=== PATIENT | male | born 1975 | race Hispanic/Latino ===

== ENCOUNTER 2018-09-29 17:09 | Outpatient (CLI) | payer BC ==
--- NOTE | 2018-09-30 07:17 | CT ---
CT OF THE ABDOMEN AND PELVIS WITHOUT CONTRAST 09/29/[address] of the abdomen and pelvis was done without oral or IV contrast. Axial slices were acquired, then coronal reconstructions were done. The lung bases are clear. the liver, spleen, pancreas, adren al glands and abdominal aorta appeared normal within the limitations of a noncontrast study. What keli ears to be the gallbladder is decompressed so cannot be commented on much at this point. I see no sto christiano here. There is a large rounded mass attached to the mid to upper portion of the right kidney that measures 4.6 cm in size[address] Its CT numbers are relatively low at 15. It would be more comforting to see them a bi t lower to ensure that this is purely water density. I feel the odds are highest that this is a simpl e cyst. It does appear to have a small daughter cyst at its edge. It would be best to follow with an ultrasound to prove that it is purely cystic. No renal stones were seen. There is no hydronephrosis. No cause for left flank pain was found. The bowel shows on distention or inflammatory change around it. The sigmoid colon wall is a little th icker than the remainder of the colon but not so much so that current colitis would be diagnosed. CT of the pelvis shows no pelvic masses, fluid collections, or inflammatory changes. IMPRESSION: 1. No cause for left flank pain seen at the moment. 2. 4.6 cm presumed cyst of the right kidney. Elective ultrasound needed to confirm it. 3. Parts of the sigmoid colon may have slightly thickened [place] but it would not surprise me if this is longstanding and not acute. Code T POS: HOME
== END 2018-09-29 17:10 | disposition home or self-care (01) ==
LOC: BURCT 17:09
PROVIDERS: ATTEND Family Medicine
DX: R10.9 Unspecified abdominal pain (principal); N28.1 Cyst of kidney, acquired
CPT/HCPCS: 74176

== ENCOUNTER 2018-10-12 09:34 | Outpatient (CLI) | payer BC ==
--- NOTE | 2018-10-12 15:37 | ULT ---
BILATERAL RENAL ULTRASOUND: 10/12/18 Ultrasonography of the urinary tract was done to check on a probable cyst seen by CT involving the ri ght kidney. The right kidney measures 11.0 x 4.9 x 5.0 cm. Indeed, there is a cyst seen in this kidney that measu res 4.0 x 4.3 x 4.1 cm. Internally, it appears purely cystic with no solid elements or septations. The left kidney is 11.1 x 5.7 x 4.7 cm. No mass or cyst was seen in it. Both kidneys showed no sign of obstruction. The cortex is normal in appearance in each. The urinary bladder shows no internal defects or worrisome wall thickening. The prostate measured nor mal in size for age. IMPRESSION: 4.3 cm cyst of the right kidney. It appears purely cystic by ultrasound criteria. POS: HOME
== END 2018-10-12 09:35 | disposition home or self-care (01) ==
LOC: BURULT 09:34
PROVIDERS: ATTEND Family Medicine
DX: N28.1 Cyst of kidney, acquired (principal)
CPT/HCPCS: 76770

== ENCOUNTER 2020-08-16 11:56 | Emergency (ER) | payer BC, SELFPAY ==
[2020-08-16] MEDS ORDERED: Nitroglycerin 0.4 MG TAB 1 EACH ONE ×2 (12:05→12:13)
[2020-08-16] MEDS ORDERED: Metoprolol Tartrate 5 MG/5 ML VIAL ONE (12:05)
[2020-08-16] MEDS ORDERED: Aspirin Chewable 81 MG TAB ONE (12:05)
[2020-08-16] MEDS ORDERED: Heparin 25,000 units/D5W 500 ML ONE (12:13)
[2020-08-16] MEDS ORDERED: Heparin 5,000 UNITS/ML VIAL ONE (12:13)
[2020-08-16 12:14] LABS: #Basophils 0.3 thou/uL (0.0-0.2); #Eosinphils 0.3 thou/uL (0.0-0.7); #Lymphocytes 4.7 thou/uL (1.20-3.40); #Monocytes 1.1 thou/uL (0.11-0.59); #Neutrophils 10.4 thou/uL (1.40-6.50); %Basophils 1.9 % (0.0-1.0); %Eosinophils 1.8 % (0.0-10.0); %Lymphocytes 28.2 % (21.0-51.0); %Monocytes 6.5 % (0.0-10.0); %Neutrophils 61.7 % (42.0-75.0); Hemoglobin 15.7 g/dL (14.0-18.0); Mean Corpuscular HGB CONC 33.7 g/dL (32.0-36.0); Platelet Count 346 thou/uL (130-400); RBC Distribution Width 12.6 % (11.5-14.5); Red Blood Cell (RBC) Count 5.07 mill/uL (4.70-6.10); White Blood Cell (WBC) Count 16.8 thou/uL (4.8-10.8)
[2020-08-16 12:19] LABS: Prothrombin Time 13.5 sec (12.0-14.7)
[2020-08-16] MEDS ORDERED: Morphine 4 MG/ML VIAL ONE (12:21)
[2020-08-16 12:28] LABS: ALT (SGPT) 33 U/L (8-55); AST (SGOT) 21 U/L (5-34); Albumin 4.4 g/dL (3.5-5.0); Alkaline Phosphatase 110 U/L (40-110); Anion Gap 15 mmol/L (10-20); BUN (Urea Nitrogen) 12 mg/dL (8.9-20.6); Bilirubin, Total 0.5 mg/dL (0.2-1.2); Calc. Creatinine Clearance 0 mL/min (70-130); Calcium 8.9 mg/dL (7.8-10.44); Carbon Dioxide 21 mmol/L (22-29); Chloride 107 mmol/L (98-107); Globulin 2.5 g/dL (2.4-3.5); Glucose 129 mg/dL (70-105); Potassium 3.1 mmol/L (3.5-5.1); Protein, Total 6.9 g/dL (6.0-8.3); Sodium 140 mmol/L (136-145)
[2020-08-16] MEDS ORDERED: Potassium Chloride 20 MEQ TAB ONE (12:34)
--- NOTE | 2020-08-16 13:57 | RAD ---
PORTABLE CHEST: Date: 08/16/2020 An AP portable film at 1218 hours is compared with the 03/22/2013 study. The heart is normal in size and the lungs are clear. No infiltrate or effusion seen. There is no vasc ular congestion or edema. The mediastinum appears normal. IMPRESSION: No acute findings. POS: HOME
== END 2020-08-16 12:36 | disposition short-term general hospital (02) ==
LOC: BURERS 11:56
DX: I21.3 ST elevation (STEMI) myocardial infarction of unspecified site (principal); E87.6 Hypokalemia; I10 Essential (primary) hypertension; F17.210 Nicotine dependence, cigarettes, uncomplicated
CPT/HCPCS: 71045; 80053; 84484; 85025; 85610; 85730; 93005; 94760; 96374; 96375; 96376; J1644; J2270

== ENCOUNTER 2020-09-17 07:21 | Outpatient (CLI) | payer OTHER ==
[2020-09-17 08:51] LABS: ALT (SGPT) 50 U/L (8-55); AST (SGOT) 27 U/L (5-34); Albumin 4.3 g/dL (3.5-5.0); Alkaline Phosphatase 121 U/L (40-110); Anion Gap 15 mmol/L (10-20); BUN (Urea Nitrogen) 12 mg/dL (8.9-20.6); Bilirubin, Total 0.5 mg/dL (0.2-1.2); Calc. Creatinine Clearance 0 mL/min (70-130); Calcium 9.4 mg/dL (7.8-10.44); Carbon Dioxide 24 mmol/L (22-29); Chloride 107 mmol/L (98-107); Cholesterol 139 mg/dl (< 200 Desired); Globulin 2.2 g/dL (2.4-3.5); Glucose 100 mg/dL (70-105); HDL Cholesterol 46 mg/dL (>60 Neg Risk); LDL Cholesterol, Calculated 67 mg/dL; Potassium 4.1 mmol/L (3.5-5.1); Protein, Total 6.5 g/dL (6.0-8.3); Sodium 142 mmol/L (136-145); Triglycerides 128 mg/dL (Less than 150)
== END 2020-09-17 07:22 | disposition home or self-care (01) ==
LOC: BURLAB 07:21
DX: I25.10 Atherosclerotic heart disease of native coronary artery without angina pectoris (principal); E78.5 Hyperlipidemia, unspecified
CPT/HCPCS: 36415; 80053; 80061

== ENCOUNTER 2020-11-29 08:00 | Emergency (ER) | payer SELFPAY ==
[2020-11-29] MEDS ORDERED: Ibuprofen 800 MG TAB ONE (08:37)
[2020-11-29] MEDS ORDERED: HYDROcodone/Acetaminophen 5/325 mg Tablet ONE (08:37)
== END 2020-11-29 09:18 | disposition home or self-care (01) ==
LOC: BURERS 08:00
DX: M23.91 Unspecified internal derangement of right knee (principal); I10 Essential (primary) hypertension; E78.00 Pure hypercholesterolemia, unspecified; F17.210 Nicotine dependence, cigarettes, uncomplicated

== ENCOUNTER 2021-02-11 07:40 | Outpatient (CLI) | payer OTHER ==
[2021-02-11 09:02] LABS: ALT (SGPT) 20 U/L (8-55); AST (SGOT) 14 U/L (5-34); Albumin 4.1 g/dL (3.5-5.0); Alkaline Phosphatase 111 U/L (40-110); Anion Gap 14 mmol/L (10-20); BUN (Urea Nitrogen) 9 mg/dL (8.9-20.6); Bilirubin, Total 0.4 mg/dL (0.2-1.2); Calc. Creatinine Clearance 0 mL/min (70-130); Calcium 8.9 mg/dL (7.8-10.44); Carbon Dioxide 24 mmol/L (22-29); Chloride 108 mmol/L (98-107); Cholesterol 189 mg/dl (< 200 Desired); Globulin 2.4 g/dL (2.4-3.5); Glucose 101 mg/dL (70-105); HDL Cholesterol 38 mg/dL (>60 Neg Risk); LDL Cholesterol, Calculated 101 mg/dL; Potassium 4.2 mmol/L (3.5-5.1); Protein, Total 6.5 g/dL (6.0-8.3); Sodium 142 mmol/L (136-145); Triglycerides 248 mg/dL (Less than 150)
== END 2021-02-11 07:41 | disposition home or self-care (01) ==
LOC: BURLAB 07:40
PROVIDERS: ATTEND Nurse Practitioner Family
DX: E78.00 Pure hypercholesterolemia, unspecified (principal); I10 Essential (primary) hypertension
CPT/HCPCS: 36415; 80053; 80061

== ENCOUNTER 2021-06-03 08:03 | Outpatient (CLI) | payer OTHER ==
[2021-06-03 08:55] LABS: ALT (SGPT) 28 U/L (8-55); AST (SGOT) 17 U/L (5-34); Albumin 4.2 g/dL (3.5-5.0); Alkaline Phosphatase 112 U/L (40-110); BUN (Urea Nitrogen) 12 mg/dL (8.9-20.6); Bilirubin, Total 0.5 mg/dL (0.2-1.2); Calc. Creatinine Clearance 0 mL/min (70-130); Calcium 9.9 mg/dL (7.8-10.44); Carbon Dioxide 24 mmol/L (22-29); Cardiac Risk 5.1 (Less than 4.5); Cholesterol 194 mg/dl (< 200 Desired); Globulin 2.3 g/dL (2.4-3.5); Glucose 100 mg/dL (70-105); HDL Cholesterol 38 mg/dL (>60 Neg Risk); LDL Cholesterol, Calculated 118 mg/dL; Protein, Total 6.5 g/dL (6.0-8.3); Triglycerides 188 mg/dL (Less than 150)
[2021-06-03 09:16] LABS: Chloride 110 mmol/L (98-107); Potassium 4.1 mmol/L (3.5-5.1); Sodium 142 mmol/L (136-145)
[2021-06-03 09:28] LABS: Anion Gap 12 mmol/L (10-20)
== END 2021-06-03 08:04 | disposition home or self-care (01) ==
LOC: BURLAB 08:03
PROVIDERS: ATTEND Nurse Practitioner Family
DX: E78.00 Pure hypercholesterolemia, unspecified (principal)
CPT/HCPCS: 36415; 80053; 80061

== ENCOUNTER 2022-02-09 22:17 | Emergency (ER) | payer BC, SELFPAY ==
[2022-02-09] MEDS ORDERED: Aspirin Chewable 81 MG TAB ONE (22:40)
[2022-02-09] MEDS ORDERED: Nitroglycerin 0.4 MG TAB 1 EACH ONE (22:40)
[2022-02-09 22:46] LABS: #Basophils 0.2 thou/uL (0.0-0.2); #Eosinphils 0.3 thou/uL (0.0-0.7); #Lymphocytes 3.4 thou/uL (1.20-3.40); #Monocytes 0.9 thou/uL (0.11-0.59); #Neutrophils 8.5 thou/uL (1.40-6.50); %Basophils 1.5 % (0.0-1.0); %Eosinophils 2.6 % (0.0-10.0); %Lymphocytes 25.3 % (21.0-51.0); %Monocytes 6.4 % (0.0-10.0); %Neutrophils 64.2 % (42.0-75.0); Mean Corpuscular Hemoglobin 31.8 pg (27.0-31.0); Mean Corpuscular Volume 90.8 fL (78.0-98.0); Platelet Count 290 thou/uL (130-400); RBC Distribution Width 12.7 % (11.5-14.5); Red Blood Cell (RBC) Count 4.72 mill/uL (4.70-6.10); White Blood Cell (WBC) Count 13.2 thou/uL (4.8-10.8)
[2022-02-09 23:01] LABS: ALT (SGPT) 32 U/L (8-55); AST (SGOT) 19 U/L (5-34); Albumin 4.2 g/dL (3.5-5.0); Alkaline Phosphatase 105 U/L (40-110); Anion Gap 14 mmol/L (10-20); BUN (Urea Nitrogen) 14 mg/dL (8.9-20.6); Bilirubin, Total 0.3 mg/dL (0.2-1.2); Calc. Creatinine Clearance 0 mL/min (70-130); Calcium 9.4 mg/dL (7.8-10.44); Carbon Dioxide 23 mmol/L (22-29); Chloride 108 mmol/L (98-107); Estimated GFR 76; Globulin 2.4 g/dL (2.4-3.5); Glucose 127 mg/dL (70-105); Lipase 45 U/L (8-78); Protein, Total 6.6 g/dL (6.0-8.3); Sodium 141 mmol/L (136-145)
== END 2022-02-10 01:00 | disposition short-term general hospital (02) ==
LOC: BURERS 22:17
DX: R07.2 Precordial pain (principal); E78.5 Hyperlipidemia, unspecified; I25.2 Old myocardial infarction; I10 Essential (primary) hypertension; F17.210 Nicotine dependence, cigarettes, uncomplicated
CPT/HCPCS: 71045; 80053; 83690; 84484; 85025; 93005; 94760

== ENCOUNTER 2023-07-15 07:30 | Outpatient (CLI) | payer BC ==
[2023-07-15 08:13] LABS: ALT (SGPT) 39 U/L (8-55); AST (SGOT) 24 U/L (5-34); Albumin 4.1 g/dL (3.5-5.0); Alkaline Phosphatase 84 U/L (40-110); Anion Gap 13 mmol/L (10-20); BUN (Urea Nitrogen) 12 mg/dL (8.9-20.6); Bilirubin, Total 0.4 mg/dL (0.2-1.2); Calc. Creatinine Clearance 0 mL/min (70-130); Calcium 9.1 mg/dL (7.8-10.44); Carbon Dioxide 23 mmol/L (22-29); Cardiac Risk 3.1 (Less than 4.5); Chloride 110 mmol/L (98-107); Cholesterol 148 mg/dl (< 200 Desired); Estimated GFR 100; Globulin 2.1 g/dL (2.4-3.5); Glucose 102 mg/dL (70-105); HDL Cholesterol 47 mg/dL (>60 Neg Risk); LDL Cholesterol, Calculated 83 mg/dL; Potassium 3.7 mmol/L (3.5-5.1); Protein, Total 6.2 g/dL (6.0-8.3); Sodium 142 mmol/L (136-145); Triglycerides 88 mg/dL (Less than 150)
== END 2023-07-15 07:31 | disposition home or self-care (01) ==
LOC: BURLAB 07:30
PROVIDERS: ATTEND Internal Medicine Cardiovascular Disease
DX: I10 Essential (primary) hypertension (principal)
CPT/HCPCS: 36415; 80053; 80061